=== PATIENT | male | born 1975 | race Caucasian/White ===

== ENCOUNTER 2016-04-13 14:00 | Emergency (ER) | payer SELFPAY ==
[2016-04-13 14:45] VITALS: BP 128/96
--- NOTE | 2016-04-13 15:19 | UC ---
Shoulder Pain HPI - HPI Summary HPI Summary: left side neck and shoulder pain x 2 weeks, no known injury , the pain is sever, radiation to left arm , increase pain with moving his neck and any lifting using his left arm - History of Current Complaint Chief Complaint: UCGeneralIllness Stated Complaint: LEFT NECK AND SHOULDER PAIN Time Seen by Provider: 04/13/16 14:45 Hx Obtained From: Patient Onset/Duration: Gradual Onset, Lasting Weeks - 2, Still Present Timing: Constant Severity Initially: Severe Severity Currently: Severe Location Of Pain: Is Discrete @ - left shoulder/ left side of neck, Radiates To - left arm Character: Spasmodic Aggravating Factor(s): Movement, Lifting, Flexion Alleviating Factor(s): Nothing Associated Signs And Symptoms: Positive: Weakness, Numbness/Tingling. Negative : Swelling, Redness, Bruising, Fever - Allergies/Home Medications Allergies/Adverse Reactions: Allergies Allergy/AdvReac Type Severity Reaction Status Date / Time Ketorolac Tromethamine Allergy See Comment Verified 04/13/16 14:35 [From Toradol] NSAIDs Allergy GI Upset Verified 04/13/16 14:35 cillins Allergy Anaphylatic Uncoded 04/13/16 14:35 Shock PMH/Surg Hx/FS Hx/Imm Hx Psychological History Of: Reports: Anxiety, Depression, Post Traumatic Stress Disorder - Surgical History Surgical History: None - Family History Known Family History: Positive: Cardiac Disease, Hypertension - Social History Alcohol Use: None Substance Use Type: None Substance Use Comment - Amount & Last Used: occasional use- last used 3 days ago. Smoking Status (MU): Heavy Every Day Tobacco Smoker Type: Cigarettes Amount Used/How Often: 1/2 PPD Review of Systems Constitutional: Negative Skin: Negative Eyes: Negative ENT: Negative Respiratory: Negative Cardiovascular: Negative All Other Systems Reviewed And Are Negative: Yes Physical Exam Triage Information Reviewed: Yes Appearance: Pain Distress, Thin Vital Signs: Initial Vital Signs Temp 99.0 F 04/13/16 14:35 Pulse 83 04/13/16 14:35 Resp 16 04/13/16 14:35 BP 128/96 04/13/16 14:35 Pulse Ox 99 04/13/16 14:35 Vital Signs Reviewed: Yes Eye Exam: Normal Eyes: Positive: Conjunctiva Clear ENT: Positive: Normal ENT inspection, Hearing grossly normal, Pharynx normal Neck exam: Normal Neck: Positive: Tenderness @, Other: - limited ROM on rotation Respiratory: Positive: Chest non-tender, Lungs clear, Normal breath sounds, No respiratory distress Cardiovascular: Positive: RRR, No Murmur, Pulses Normal Musculoskeletal: Positive: Other: - left shoulder : diffuse tenderness, pain with any ROM normal strength Skin Exam: Normal Shoulder Course/Dx - Differential Dx/Diagnosis Provider Diagnoses: THORASIC OUTLET SYNDROME Discharge - Discharge Plan Condition: Stable Disposition: HOME Prescriptions: Cyclobenzaprine TAB* [Flexeril TAB*] 10 mg PO BID #20 tab Patient Education Materials: Thoracic Outlet Syndrome (ED) Forms: *Work Release Referrals: No Primary Care Phys,NOPCP [Primary Care Provider] - Additional Instructions: rest, heat, stretching flexeril 2 x per day physical therapy 3 x per week for 3 weeks light work duty , no lifting more than 20 lb for the 7 days follow up with your pcp in 2 weeks
== END 2016-04-13 15:15 | disposition home or self-care (01) ==
LOC: UCCORT 14:00
DX: G54.0 Brachial plexus disorders (principal); F17.210 Nicotine dependence, cigarettes, uncomplicated; F19.90 Other psychoactive substance use, unspecified, uncomplicated; Z88.1 Allergy status to other antibiotic agents; Z88.6 Allergy status to analgesic agent
CPT/HCPCS: 99212; G0463